=== PATIENT | male | born 1990 | race American Indian/Alaskan Native ===

== ENCOUNTER 2016-07-02 08:51 | Emergency (ER) | payer OTHER ==
[2016-07-02 09:07] VITALS: BP 136/95
[2016-07-02] MEDS ORDERED: TORADOL IM ONE (10:20)
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
--- NOTE | 2016-07-02 11:58 | XRay Report ---
SOFT TISSUE NECK TWO VIEWS: 07/02/16 08:51:00 CLINICAL: Swallowed a tooth. FINDINGS: Normal bones and soft tissues. No foreign body or tooth identified. No soft tissue air or mediastinal air. IMPRESSION: Negative
--- NOTE | 2016-07-02 11:58 | XRay Report ---
CHEST TWO VIEWS: 07/02/16 08:51:00 CLINICAL: Looking for a swallowed tooth. COMPARISON: None FINDINGS: Normal heart and pulmonary vasculature. The lungs are normally expanded and clear. No tooth is identified. The bones and soft tissues are unremarkable. IMPRESSION: Normal chest.
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
== END 2016-07-02 12:51 | disposition home or self-care (01) ==
LOC: ED 08:51
DX: S02.642A Fracture of ramus of left mandible, initial encounter for closed fracture (principal); F41.9 Anxiety disorder, unspecified; Z87.891 Personal history of nicotine dependence; Y04.8XXA Assault by other bodily force, initial encounter; Y93.89 Activity, other specified; Y92.89 Other specified places as the place of occurrence of the external cause; Y99.8 Other external cause status
CPT/HCPCS: 70360; 70486; 71020; 96372; 99284; J1885